=== PATIENT | female | born 1950 | race Caucasian/White ===

== ENCOUNTER 2024-10-19 19:04 | Emergency (ER) | payer MEDICARE, OTHER ==
[~2024-10-19] VITALS: Ht 165.1 cm; Wt 97.5 kg
[~2024-10-19 19:04] MED LIST: ASPIR 8181 MG PO; B COMPLEX WITH1 EACH PO; B-121000 MCG PO; BIOTIN; CALCIUM + VITA1 EACH PO; DIOVAN HCT 3201 EAC1 PO; FERROUS FUMARA324 MG PO; FLONASE16 GM; HYDROCODON-ACE1 EACH PO; HYDROXYZINE HCL25 MG PO; MELOXICAM7.5 MG PO; METHOCARBAMOL750 MG PO; METOPROLOL SUCC25 MG PO; OMEGA 3 1,0001 EACH PO; OXYCODONE-ACET1 EAC1 PO; PRILOSEC20 MG PO; VESICARE5 MG PO; ZETIA10 MG PO
[2024-10-19] MEDS: NITROGLYCERIN 0.4 MG SUBL SL ONE (20:05)
[2024-10-19] MEDS ORDERED: BELLADONNA ALK/PHENOBARBITAL 5 ML UDC ONE (20:47)
[2024-10-19] MEDS ORDERED: MAGNESIUM/ALUMINUM/SIMETHICONE 30 ML UDC ONE (20:47)
[2024-10-19] MEDS: MAGNESIUM/ALUMINUM/SIMETHICONE 30 ML UDC PO ONE (20:59)
[2024-10-19] MEDS: LIDOCAINE VISC 2% SOLN 15 ML UDC PO ONE (20:59)
[2024-10-19] MEDS: BELLADONNA ALK/PHENOBARBITAL 5 ML UDC PO SCH (21:00)
[2024-10-19 22:08] VITALS: PULSE 92; RESP 18; TEMP 98.6
[2024-10-19 22:09] VITALS: BP 148/94; PULSE 92; RESP 18; TEMP 98.6; O2SAT 97
== END 2024-10-19 22:11 | disposition home or self-care (01) ==
LOC: FSED 19:37
DX: R07.89 Other chest pain (principal); I10 Essential (primary) hypertension; I48.91 Unspecified atrial fibrillation; D64.9 Anemia, unspecified; K21.9 Gastro-esophageal reflux disease without esophagitis; M54.2 Cervicalgia; G89.29 Other chronic pain; F41.9 Anxiety disorder, unspecified; R94.31 Abnormal electrocardiogram [ECG] [EKG]; Z96.653 Presence of artificial knee joint, bilateral
CPT/HCPCS: 71046; 80053; 82553; 84484; 85025; 93005; 99284